=== PATIENT | female | born 1965 | race American Indian/Alaskan Native ===

== ENCOUNTER 2016-11-13 20:08 | Emergency (ER) | payer MEDICAID ==
[2016-11-13 20:08] VITALS: BMI 38.0
[2016-11-13 20:28] VITALS: TEMP 98.1
[2016-11-13] MEDS ORDERED: Sodium Chloride 0.9% 1,000 ML IV STA (21:23)
[2016-11-13 21:33] LABS: PH,URINE 6.5 (4.7-8.0); URINE BILIRUBIN NEGATIVE (NEGATIVE); URINE BLOOD MODERATE (NEGATIVE); URINE GLUCOSE (UA) NEGATIVE (NEGATIVE); URINE KETONE NEGATIVE (NEGATIVE); URINE LEUKOCYTE ESTERASE NEGATIVE Leu/uL (NEGATIVE); URINE PROTEIN NEGATIVE mg/dL (<30 mg/dL)
[2016-11-13 21:35] LABS: URINE APPEARANCE CLEAR (CLEAR); URINE COLOR YELLOW (YELLOW)
[2016-11-13 21:47] LABS: URINE BACTERIA MOD (NEG); URINE WBC 0 - 2 /hpf (0-6)
--- NOTE | 2016-11-13 21:51 | ED PDOC ---
Arrival/HPI - General Historian: Patient - General Chief Complaint: Female Genitourinary Time Seen by Provider: 11/13/16 20:32 - History of Present Illness Narrative History of Present Illness (Text): 11/13/16 21:43 51yo female present with complaint of vaginal bleeding and painful lump behind her right ear. States her monthly period ended Wednesday and then she started noticing blood when she wipes herself after urination from yesterday. She also notes that she had sore throat and hoarseness that resolved and the nshe started having the lump behind her right ear. Did not take any medication. Denies current sore throat, fever, chills, dizziness, urinary symptoms, back pain, abdominal pain, any other complaint. (Maurice Salinas) Past Medical History - Provider Review Nursing Documentation Reviewed: Yes - Infectious Disease Hx of Infectious Diseases: None - Tetanus Immunization Tetanus Immunization: Unknown - Past Medical History Past Medical History: Unable to Obtain - Cardiac Hx Cardiac Disorders: No - Pulmonary Hx Respiratory Disorders: No - Neurological Hx Neurological Disorder: No - HEENT Hx HEENT Disorder: No - Renal Hx Renal Disorder: No - Endocrine/Metabolic Hx Endocrine Disorders: No - Hematological/Oncological Hx Blood Disorders: No - Integumentary Hx Dermatological Disorder: No - Musculoskeletal/Rheumatological Hx Musculoskeletal Disorders: Yes Hx Back Pain: Yes - Gastrointestinal Hx Gastrointestinal Disorders: Yes Hx Gastroesophageal Reflux: Yes - Genitourinary/Gynecological Hx Genitourinary Disorders: No - Psychiatric Hx Depression: Yes Hx Emotional Abuse: No Hx Physical Abuse: No Hx Substance Use: No - Past Surgical History Past Surgical History: No Previous - Anesthesia Hx Anesthesia: No Hx Anesthesia Reactions: No Hx Malignant Hyperthermia: No - Suicidal Assessment Feels Threatened In Home Enviroment: No Family/Social History - Physician Review Nursing Documentation Reviewed: Yes Family/Social History: Unknown Family HX Smoking Status: Unknown If Ever Smoked Hx Alcohol Use: No Hx Substance Use: No Hx Substance Use Treatment: No Allergies/Home Meds Allergies/Adverse Reactions: Allergies No Known Allergies Allergy (Verified 11/09/15 20:38) Home Medications: Home Meds Medication Instructions Recorded Confirmed Omeprazole [Prilosec] 40 mg PO DAILY 07/08/15 11/09/15 Paroxetine HCl [Paxil] 40 mg PO DAILY 11/09/15 11/13/16 Review of Systems - Physician Review All systems were reviewed & negative as marked: Yes - Review of Systems Constitutional: Normal Eyes: Normal ENT: Normal Respiratory: Normal Cardiovascular: Normal Gastrointestinal: Normal. absent: Abdominal Pain Genitourinary Female: Vaginal Bleeding. absent: Frequency, Hematuria Musculoskeletal: Normal Skin: Normal Neurological: Normal Endocrine: Normal Hemo/Lymphatic: Normal Psychiatric: Normal Physical Exam Vital Signs Reviewed: Yes Temperature: Afebrile Blood Pressure: Normal Pulse: Regular Respiratory Rate: Normal Appearance: Positive for: Well-Appearing, Non-Toxic, Comfortable Pain Distress: None Mental Status: Positive for: Alert and Oriented X 3 - Systems Exam Head: Present: Atraumatic, Normocephalic Pupils: Present: PERRL Extroacular Muscles: Present: EOMI Conjunctiva: Present: Normal Mouth: Present: Moist Mucous Membranes Neck: Present: Normal Range of Motion Respiratory/Chest: Present: Clear to Auscultation, Good Air Exchange. No: Respiratory Distress, Accessory Muscle Use Cardiovascular: Present: Regular Rate and Rhythm, Normal S1, S2. No: Murmurs Abdomen: Present: Normal Bowel Sounds. No: Tenderness, Distention, Peritoneal Signs Genitourinary/Pelvic Exam: Present: Vaginal Bleeding (Very small scanty blood noted on cervix wall) Back: Present: Normal Inspection Upper Extremity: Present: Normal Inspection. No: Cyanosis, Edema Lower Extremity: Present: Normal Inspection. No: Edema Neurological: Present: GCS=15, CN II-XII Intact, Speech Normal Skin: Present: Warm, Dry, Normal Color. No: Rashes Lymphatic: Present: Other (Right posterior node palpable and tender) Psychiatric: Present: Alert, Oriented x 3, Normal Insight, Normal Concentration Vital Signs Temp Pulse Resp BP Pulse Ox 11/14/16 00:30 72 16 121/78 100 11/14/16 00:09 75 18 121/78 99 11/13/16 20:22 98.1 F 82 18 108/78 98 Medical Decision Making ED Course and Treatment: I was available for consultation during PA evaluation. The chart was reviewed by me, and I agree with disposition. The documented history was done by the physician history faculty member. The documented physical exam was done by the physician history faculty member. The documented procedures were done by the physician history faculty member. (Stevie Mercedes) 11/14/16 01:58 PT was hemodynamically stable in ED. Afebrile. Her lab was reviewed with h/h of 10.4. She had very mild scanty blood on her cervix on examination. She was given Amoxicillin for lymphadenopathy. Result was DW the pt. she have aGYN and was referred to her FAN INSTALLER/PMD. Advised TRT ED for any new or worsening symptoms. (Maurice Salinas) - Lab Interpretations Lab Results: 11/13/16 23:54 11/13/16 23:54 Lab Results 11/13/16 23:54: Sodium 137, Potassium 4.5, Chloride 102, Carbon Dioxide 27, Anion Gap 13, BUN 15, Creatinine 0.7, Est GFR ( Amer) > 60, Est GFR (Non- Af Amer) > 60, Random Glucose 111 H, Calcium 8.5, Total Bilirubin 0.2, AST 33, ALT 30, Alkaline Phosphatase 85, Total Protein 8.1, Albumin 3.5, Globulin 4.6, Albumin/Globulin Ratio 0.8 L 11/13/16 23:54: PT 10.1, INR 0.94, APTT 26.4 11/13/16 23:54: WBC 8.5 D, RBC 4.32, Hgb 10.4 L, Hct 32.5 L, MCV 75.2 L, MCH 24.1 L, MCHC 32.0, RDW 16.1 H, Plt Count 269, MPV 11.0, Gran % 59.4, Lymph % ( Auto) 31.2, [place] % (Auto) 7.5 H, Eos % (Auto) 1.8, Baso % (Auto) 0.1, Gran # 5.05, Lymph # 2.7, [place] # 0.6, Eos # 0.2, Baso # 0.01 11/13/16 21:00: Urine Color Yellow, Urine Appearance Clear, Urine pH 6.5, Ur Specific [place] 1.025, Urine Protein Negative, Urine Glucose (UA) Negative, Urine Ketones Negative, Urine Blood Moderate H, Urine Nitrate Negative, Urine Bilirubin Negative, Urine Urobilinogen 1.0 H, Ur Leukocyte Esterase Negative, Urine RBC 2 - 5, Urine WBC 0 - 2, Ur Epithelial Cells 6 - 8, Urine Bacteria Mod - Medication Orders Current Medication Orders: Discontinued Medications Amoxicillin (Amoxil 500 Mg Cap) 500 mg PO STAT STA PRN Reason: Protocol Stop: 11/13/16 22:40 Last Admin: 11/14/16 00:00 Dose: Sodium Chloride (Sodium Chloride 0.9%) 1,000 mls @ 999 mls/hr IV .Q1H1M STA Stop: 11/13/16 22:23 Last Admin: 11/13/16 23:56 Dose: 999 mls/hr Ibuprofen (Motrin Tab) 600 mg PO STAT STA Stop: 11/13/16 22:41 Last Admin: 11/13/16 22:50 Dose: 600 mg Ketorolac Tromethamine (Toradol) 30 mg IVP STAT STA Stop: 11/13/16 21:24 Last Admin: 11/14/16 00:00 Dose: Disposition/Present on Arrival - Present on Arrival Any Indicators Present on Arrival: No History of DVT/PE: No History of Uncontrolled Diabetes: No Urinary Catheter: No History of Decub. Ulcer: No History Surgical Site Infection Following: None - Disposition Have Diagnosis and Disposition been Completed?: Yes Disposition Time: 00:30 Patient Plan: Discharge - Disposition Diagnosis: Lymphadenopathy, Dysfunctional uterine bleeding Disposition: HOME/ ROUTINE Condition: STABLE Discharge Instructions (ExitCare): Dysfunctional Uterine Bleeding (ED), Lymphadenopathy (ED) Additional Instructions: Follow up with your FAN INSTALLER/PMD Return to ED for any new or worsening symptoms Prescriptions: Amoxicillin 500 mg PO BID #14 tab Ibuprofen [Motrin Tab] 600 mg PO Q6 #20 tab Referrals: Nae Long MD [Primary Care Provider] - Follow up with primary
[2016-11-14] LABS: ADD MANUAL DIFF? NO
[2016-11-14 00:09] VITALS: BP 121/78
[2016-11-14 00:14] LABS: ALB/GLOB RATIO 0.8 (1.1-1.8); ALKALINE PHOSPHATASE 85 U/L (38-133); ALT/SGPT 30 U/L (7-56); AST/SGOT 33 U/L (15-39); BILIRUBIN,TOTAL 0.2 mg/dL (0.2-1.3); BLOOD UREA NITROGEN 15 mg/dL (7-21); CALCIUM 8.5 mg/dL (8.4-10.5); CARBON DIOXIDE 27 mmol/L (21-33); CHLORIDE 102 mmol/L (98-107); GFR AFRICAN-AMERICAN > 60; GLUCOSE,RANDOM 111 mg/dL (70-110); POTASSIUM 4.5 mmol/L (3.6-5.0); SODIUM 137 mmol/L (132-148); TOTAL PROTEIN 8.1 g/dL (5.8-8.3)
[2016-11-14 00:21] LABS: BASO # 0.01 K/mm3 (0.0-2.0); BASO % 0.1 % (0.0-3.0); EOS # 0.2 (0.0-0.7); EOS % 1.8 % (1.5-5.0); GRAN # 5.05 (1.4-6.5); GRAN % 59.4 % (50.0-68.0); HEMATOCRIT 32.5 % (36.0-48.0); LYMPH # 2.7 (1.2-3.4); LYMPH % 31.2 % (22.0-35.0); MEAN CELL VOLUME 75.2 fL (80.0-105.0); MEAN CORPUSCULAR HEMOGLOBIN 24.1 pg (25.0-35.0); MONO # 0.6 (0.1-0.6); MONO % 7.5 % (1.0-6.0); PLATELET COUNT 269 10^3/uL (120.0-450.0); RED CELL DISTRIBUTION WIDTH 16.1 % (11.5-14.5); WHITE BLOOD COUNT 8.5 10^3/ul (4.5-11.0)
[2016-11-14 00:25] LABS: INR 0.94 (0.93-1.08); PARTIAL THROMBOPLASTIN TIME 26.4 Seconds (23.7-30.8)
[2016-11-14 00:30] VITALS: PULSE 72; RESP 16; O2SAT 100
== END 2016-11-14 00:30 | disposition home or self-care (01) ==
LOC: ED 20:08
DX: N93.8 Other specified abnormal uterine and vaginal bleeding (principal); R59.1 Generalized enlarged lymph nodes
CPT/HCPCS: 80053; 81001; 85025; 85610; 85730; 96360; 99285; J7040

== ENCOUNTER 2016-11-21 13:01 | Emergency (ER) | payer MEDICAID ==
--- NOTE | 2016-11-21 22:28 | RAD ---
PROCEDURE: Chest two views HISTORY: Cough COMPARISON: None TECHNIQUE: Standard protocol for this study/examination. FINDINGS: No active pulmonary disease. No pulmonary nodules, masses or infiltrates. No evidence of acute, significant cardiovascular disease. No significant pleural, osseous or subdiaphragmatic abnormalities. IMPRESSION: No active disease
== END 2016-11-23 09:19 | disposition home or self-care (01) ==
LOC: MERGE 13:01 → ED 13:01
DX: J40 Bronchitis, not specified as acute or chronic (principal)

== ENCOUNTER 2017-05-13 12:34 | Emergency (ER) | payer MEDICAID ==
[2017-05-13 12:34] VITALS: BMI 38.0
--- NOTE | 2017-05-13 13:01 | ED PDOC ---
Arrival/HPI - General Chief Complaint: Female Genitourinary Time Seen by Provider: 05/13/17 12:58 Historian: Patient - History of Present Illness Narrative History of Present Illness (Text): 05/13/17 13:00 51 yo female w/recent hx of uterus fibroid come in for evaluation of vaginal bleeding started " second week of April". Pt reports, " change numerous pads during the day". Pt admits, had Depo shot in February, missed menstrual in March and now developed heavy vaginal bleeding. Otherwise, pt denies fever, chills, headache, dizziness, weakness, CP, SOB, dyspnea, diaphoresis, palpitation, abd. pain, V/D, back pain, UTI sx. Ambulate to Ed for evaluation, not in any apparent distress. Past Medical History - Provider Review Nursing Documentation Reviewed: Yes - Travel History Have you recently traveled outside [place] w/in the past 3 mons?: No - Infectious Disease Hx of Infectious Diseases: None - Tetanus Immunization Tetanus Immunization: Unknown - Past Medical History Past Medical History: Unable to Obtain - Cardiac Hx Cardiac Disorders: No - Pulmonary Hx Respiratory Disorders: No - Neurological Hx Neurological Disorder: No - HEENT Hx HEENT Disorder: No - Renal Hx Renal Disorder: No - Endocrine/Metabolic Hx Endocrine Disorders: No - Hematological/Oncological Hx Blood Disorders: No - Integumentary Hx Dermatological Disorder: No - Musculoskeletal/Rheumatological Hx Musculoskeletal Disorders: Yes Hx Back Pain: Yes - Gastrointestinal Hx Gastrointestinal Disorders: Yes Hx Gastroesophageal Reflux: Yes - Genitourinary/Gynecological Hx Genitourinary Disorders: No - Psychiatric Hx Depression: Yes Hx Emotional Abuse: No Hx Physical Abuse: No Hx Substance Use: No - Past Surgical History Past Surgical History: No Previous - Anesthesia Hx Anesthesia: No Hx Anesthesia Reactions: No Hx Malignant Hyperthermia: No - Suicidal Assessment Feels Threatened In Home Enviroment: No Family/Social History - Physician Review Nursing Documentation Reviewed: Yes Family/Social History: No Known Family HX Smoking Status: Unknown If Ever Smoked Hx Alcohol Use: No Hx Substance Use: No Hx Substance Use Treatment: No Allergies/Home Meds Allergies/Adverse Reactions: Allergies No Known Allergies Allergy (Verified 05/13/17 12:56) Review of Systems - Review of Systems Constitutional: Normal Eyes: Normal ENT: Normal Respiratory: Normal Cardiovascular: Normal Gastrointestinal: Normal Genitourinary Female: Vaginal Bleeding Musculoskeletal: Normal Skin: Normal Neurological: Normal Endocrine: Normal Hemo/Lymphatic: Normal Psychiatric: Normal Physical Exam Vital Signs Reviewed: Yes Vital Signs Temp Pulse Resp BP Pulse Ox 05/13/17 13:47 71 18 116/45 L 100 05/13/17 13:00 98.8 F 94 H 18 108/87 100 Temperature: Afebrile Blood Pressure: Normal Pulse: Regular Respiratory Rate: Normal Appearance: Positive for: Well-Appearing, Non-Toxic, Comfortable Pain Distress: None Mental Status: Positive for: Alert and Oriented X 3 - Systems Exam Conjunctiva: Present: Normal Mouth: Present: Moist Mucous Membranes, Normal Lips. No: Drooling Neck: Present: Trachea Midline. No: JVD Respiratory/Chest: Present: Clear to Auscultation, Good Air Exchange. No: Respiratory Distress, Accessory Muscle Use Cardiovascular: Present: Regular Rate and Rhythm, Normal S1, S2. No: Murmurs Abdomen: Present: Normal Bowel Sounds. No: Tenderness, Distention, Peritoneal Signs, Rebound, Guarding Back: No: CVA Tenderness Upper Extremity: Present: Normal ROM. No: Deformity Lower Extremity: Present: Normal ROM. No: Edema, Swelling, Deformity Neurological: Present: GCS=15, Speech Normal Skin: Present: Warm, Dry, Normal Color. No: Rashes Psychiatric: Present: Alert, Oriented x 3, Normal Insight, Normal Concentration Medical Decision Making ED Course and Treatment: 05/13/17 12:59 PT WAS OBS IN Emergency department FOR 1.5 HOURS AD REMAINED STABLE. Pt on re-eval, pt is Afebrile, hemodynamicaly stable. Non-toxic. Neck; Supple, (-) JVD Lungs: CTA B/L, BS equal B/L. CVS: (+)S1S2, reg Abd: benign, (-) guarding, (-)rebound, (-) localized tenderness. back: (-) CVA tenderness Blood work review , no evidence of anemia or dehydration. Pt has clinical findings c/w DUB, menorrhagia. Case discussed with MAINTENANCE AND ENGINEERING MANAGER-on-call , results review, recommend Lysteda 1300 tid#5ds with outpt f/u results review and dsicussed with pt. Pt advised on course of ds. ref. to f/u with MAINTENANCE AND ENGINEERING MANAGER in 2-3 days for re-eval. return if any worsening or new changes. - Lab Interpretations Lab Results: 12/21/17 13:43 05/13/17 13:43 Lab Results 05/13/17 13:43: Sodium 140, Potassium 4.3, Chloride 107, Carbon Dioxide 25, Anion Gap 13, BUN 13, Creatinine 0.8, Est GFR ( Amer) > 60, Est GFR (Non- Af Amer) > 60, Random Glucose 107, Calcium 9.2, Total Bilirubin 0.4, AST 30, ALT 30, Alkaline Phosphatase 69, Total Protein 8.7 H, Albumin 4.0, Globulin 4.7 , Albumin/Globulin Ratio 0.9 L 05/13/17 13:43: WBC 6.4 D, RBC 4.69, Hgb 11.3 L, Hct 35.0 L, MCV 74.6 L, MCH 24.1 L, MCHC 32.3, RDW 16.9 H, Plt Count 244, MPV 10.6, Gran % 60.3, Lymph % ( Auto) 31.7, [place] % (Auto) 6.5 H, Eos % (Auto) 1.2 L, Baso % (Auto) 0.3, Gran # 3.87, Lymph # 2.0, [place] # 0.4, Eos # 0.1, Baso # 0.02 05/13/17 13:20: Urine Color Red, Urine Appearance Turbid, Urine pH 6.0, Ur Specific [place] >= 1.030, Urine Protein 100 H, Urine Glucose (UA) Negative, Urine Ketones Trace H, Urine Blood Large H, Urine Nitrate Negative, Urine Bilirubin Small H, Urine Urobilinogen 0.2, Ur Leukocyte Esterase Negative, Urine RBC Tntc, Urine WBC Negative, Ur Epithelial Cells 3 - 4 - Medication Orders Current Medication Orders: Discontinued Medications Sodium Chloride (Sodium Chloride 0.9%) 1,000 mls @ 999 mls/hr IV .Q1H1M STA Stop: 05/13/17 14:23 Last Admin: 05/13/17 13:45 Dose: 999 mls/hr eMAR Start Stop Document 05/13/17 13:45 REBA (Rec: 05/13/17 13:51 RG [id number]) Intravenous Solution Start Date 05/13/17 Start Time 13:45 Disposition/Present on Arrival - Present on Arrival Any Indicators Present on Arrival: No History of DVT/PE: No History of Uncontrolled Diabetes: No Urinary Catheter: No History of Decub. Ulcer: No History Surgical Site Infection Following: None - Disposition Have Diagnosis and Disposition been Completed?: Yes Diagnosis: Leiomyoma of body of uterus, Menorrhagia Disposition: HOME/ ROUTINE Disposition Time: 14:15 Patient Plan: Discharge Condition: STABLE Discharge Instructions (ExitCare): Menorrhagia (ED) Additional Instructions: ENCOURAGE FLUIDS FOLLOW UP WITH MAINTENANCE AND ENGINEERING MANAGER IN 2-3 DAYS FOR RE-EVALUATION AND FURTHER TREATMENT NEED RETURN TO ED IF ANY WORSENING OR NEW CHANGES. Prescriptions: Tranexamic Acid [Lysteda] 1,300 mg PO TID #15 tablet Referrals: Marry Alvarado CNM [Certified Nurse [place]] - [facility] - Follow up with primary Forms: [facility] ([place]ian), WORK NOTE
[2017-05-13 13:11] VITALS: RESP 18; TEMP 98.8; O2SAT 100
[2017-05-13] MEDS ORDERED: Sodium Chloride 0.9% 1,000 ML IV STA (13:23)
[2017-05-13 13:41] LABS: URINE BILIRUBIN SMALL (NEGATIVE); URINE BLOOD LARGE (NEGATIVE); URINE GLUCOSE (UA) NEGATIVE (NEGATIVE); URINE KETONE TRACE mg/dL (NEGATIVE); URINE LEUKOCYTE ESTERASE NEGATIVE Leu/uL (NEGATIVE); URINE PROTEIN 100 mg/dL (<30 mg/dL); URINE UROBILINOGEN 0.2 E.U./dL (<1 E.U./dL)
[2017-05-13 13:44] LABS: URINE APPEARANCE TURBID (CLEAR); URINE COLOR RED (YELLOW)
[2017-05-13 13:51] LABS: BASO # 0.02 K/mm3 (0.0-2.0); BASO % 0.3 % (0.0-3.0); EOS # 0.1 (0.0-0.7); EOS % 1.2 % (1.5-5.0); GRAN # 3.87 (1.4-6.5); GRAN % 60.3 % (50.0-68.0); LYMPH % 31.7 % (22.0-35.0); MEAN CELL VOLUME 74.6 fl (80.0-105.0); MEAN CORPUSCULAR HEMOGLOBIN 24.1 pg (25.0-35.0); MEAN CORPUSCULAR HGB CONC 32.3 g/dl (31.0-37.0); MEAN PLATELET VOLUME 10.6 fl (7.0-11.0); MONO # 0.4 (0.1-0.6); MONO % 6.5 % (1.0-6.0); RED CELL DISTRIBUTION WIDTH 16.9 % (11.5-14.5); WHITE BLOOD COUNT 6.4 10^3/ul (4.5-11.0)
[2017-05-13 13:51] LABS: URINE RBC TNTC /hpf (0-2); URINE WBC NEGATIVE /hpf (0-6)
[2017-05-13 14:00] LABS: BLOOD UREA NITROGEN 13 mg/dL (7-21); CARBON DIOXIDE 25 mmol/L (21-33); CHLORIDE 107 mmol/L (98-107); GFR AFRICAN-AMERICAN > 60; GLUCOSE,RANDOM 107 mg/dL (70-110); POTASSIUM 4.3 mmol/L (3.6-5.0); SODIUM 140 mmol/L (132-148)
[2017-05-13 14:01] LABS: ALKALINE PHOSPHATASE 69 U/L (38-126); ALT/SGPT 30 U/L (7-56); AST/SGOT 30 U/L (14-36); BILIRUBIN,TOTAL 0.4 mg/dL (0.2-1.3); CALCIUM 9.2 mg/dL (8.4-10.5); TOTAL PROTEIN 8.7 g/dL (5.8-8.3)
[2017-05-13 14:10] LABS: ALB/GLOB RATIO 0.9 (1.1-1.8)
[2017-05-13 14:12] VITALS: BP 116/45; PULSE 71
== END 2017-05-13 15:05 | disposition home or self-care (01) ==
LOC: ED 12:34
DX: D25.9 Leiomyoma of uterus, unspecified (principal); N92.0 Excessive and frequent menstruation with regular cycle
CPT/HCPCS: 80053; 81001; 85025; 99285; J7040

== ENCOUNTER 2017-07-21 15:12 | Emergency (ER) | payer MEDICAID ==
[2017-07-21 15:12] VITALS: BMI 38.0
[2017-07-21 15:17] VITALS: BP 123/88; PULSE 98; TEMP 98.6; O2SAT 100
[2017-07-21 15:20] VITALS: RESP 18
[2017-07-21] MEDS ORDERED: Promethazine DM 6.25 mg-15 mg/5 ml Syrup PO STA (15:27)
--- NOTE | 2017-07-21 15:30 | ED PDOC ---
Arrival/HPI - General Chief Complaint: Cough, Cold, Congestion Time Seen by Provider: 07/21/17 15:26 Historian: Patient - History of Present Illness Narrative History of Present Illness (Text): 07/21/17 15:27 51yo female present with weeks history of nonproductive cough. States she was seen by a Doctor for the cough and was given Albuterol inhaler for bronchitis. states the cough improved, but she is till coughing. Notes that cough is causing her to have headache. She came to ED requesting antitussive. She denies fever, chills, sore throat(Although triage note states sore throat), chest pain , SOB, diaphoresis, wheezing, any other complaint. Past Medical History - Provider Review Nursing Documentation Reviewed: Yes - Infectious Disease Hx of Infectious Diseases: None - Tetanus Immunization Tetanus Immunization: Unknown - Past Medical History Past Medical History: Unable to Obtain - Cardiac Hx Cardiac Disorders: No - Pulmonary Hx Respiratory Disorders: No - Neurological Hx Neurological Disorder: No - HEENT Hx HEENT Disorder: No - Renal Hx Renal Disorder: No - Endocrine/Metabolic Hx Endocrine Disorders: No - Hematological/Oncological Hx Blood Disorders: No - Integumentary Hx Dermatological Disorder: No - Musculoskeletal/Rheumatological Hx Musculoskeletal Disorders: Yes Hx Back Pain: Yes - Gastrointestinal Hx Gastrointestinal Disorders: Yes Hx Gastroesophageal Reflux: Yes - Genitourinary/Gynecological Hx Genitourinary Disorders: No - Psychiatric Hx Depression: Yes Hx Emotional Abuse: No Hx Physical Abuse: No Hx Substance Use: No - Past Surgical History Past Surgical History: No Previous - Anesthesia Hx Anesthesia: No Hx Anesthesia Reactions: No Hx Malignant Hyperthermia: No - Suicidal Assessment Feels Threatened In Home Enviroment: No Family/Social History - Physician Review Nursing Documentation Reviewed: Yes Family/Social History: Unknown Family HX Smoking Status: Unknown If Ever Smoked Hx Alcohol Use: No Hx Substance Use: No Hx Substance Use Treatment: No Allergies/Home Meds Allergies/Adverse Reactions: Allergies No Known Allergies Allergy (Verified 07/21/17 15:15) Home Medications: Home Meds Medication Instructions Recorded Confirmed Loratadine [Claritin] 10 mg PO DAILY 07/21/17 07/21/17 Review of Systems - Physician Review All systems were reviewed & negative as marked: Yes - Review of Systems Constitutional: Normal Eyes: Normal ENT: Normal Respiratory: Cough. absent: SOB, Sputum, Wheezing Cardiovascular: Normal Gastrointestinal: Normal Genitourinary Female: Normal Musculoskeletal: Normal Skin: Normal Neurological: Normal Endocrine: Normal Hemo/Lymphatic: Normal Psychiatric: Normal Physical Exam Vital Signs Reviewed: Yes Vital Signs Temp Pulse Resp BP Pulse Ox 07/21/17 15:20 98.6 F 98 H 18 123/88 100 07/21/17 15:15 98.6 F 98 H 16 123/88 100 Temperature: Afebrile Blood Pressure: Normal Pulse: Regular Respiratory Rate: Normal Appearance: Positive for: Well-Appearing, Non-Toxic, Comfortable Pain Distress: None Mental Status: Positive for: Alert and Oriented X 3 - Systems Exam Head: Present: Atraumatic, Normocephalic Pupils: Present: PERRL Extroacular Muscles: Present: EOMI Conjunctiva: Present: Normal Mouth: Present: Moist Mucous Membranes Neck: Present: Normal Range of Motion Respiratory/Chest: Present: Clear to Auscultation, Good Air Exchange. No: Respiratory Distress, Accessory Muscle Use, Wheezes, Decreased Breath Sounds, Rales, Retracting, Rhonchi, Tachypneic Cardiovascular: Present: Regular Rate and Rhythm, Normal S1, S2. No: Murmurs Abdomen: Present: Normal Bowel Sounds. No: Tenderness, Distention, Peritoneal Signs Back: Present: Normal Inspection Upper Extremity: Present: Normal Inspection. No: Cyanosis, Edema Lower Extremity: Present: Normal Inspection. No: Edema Neurological: Present: GCS=15, CN II-XII Intact, Speech Normal Skin: Present: Warm, Dry, Normal Color. No: Rashes Psychiatric: Present: Alert, Oriented x 3, Normal Insight, Normal Concentration Disposition/Present on Arrival - Present on Arrival Any Indicators Present on Arrival: No History of DVT/PE: No History of Uncontrolled Diabetes: No Urinary Catheter: No History of Decub. Ulcer: No History Surgical Site Infection Following: None - Disposition Have Diagnosis and Disposition been Completed?: Yes Diagnosis: Cough, Costochondritis Disposition: HOME/ ROUTINE Disposition Time: 15:30 Patient Plan: Discharge Condition: FAIR Discharge Instructions (ExitCare): Cough in Adults Additional Instructions: Take medication as directed Follow up with your doctor Return to ED for any new symptoms Prescriptions: Promethazine [Phenergan Syrup] 6.25 mg PO Q6 #120 ml Referrals: Nae Long MD [Primary Care Provider] - Follow up with primary
== END 2017-07-21 16:20 | disposition home or self-care (01) ==
LOC: ED 15:12
DX: R05 Cough (principal); M94.0 Chondrocostal junction syndrome [Tietze]

== ENCOUNTER 2017-09-21 13:33 | Emergency (ER) | payer MEDICAID ==
[2017-09-21 13:41] VITALS: BMI 39.4
[2017-09-21 13:46] VITALS: BP 123/93; PULSE 78; RESP 18; TEMP 98.7; O2SAT 98
[2017-09-21] MEDS ORDERED: Sodium Chloride 0.9% 1,000 ML IV STA (14:38)
[2017-09-21 15:07] LABS: BASO # 0.01 K/mm3 (0.0-2.0); BASO % 0.2 % (0.0-3.0); EOS # 0.1 (0.0-0.7); EOS % 1.3 % (1.5-5.0); GRAN # 3.18 (1.4-6.5); GRAN % 53.1 % (50.0-68.0); HEMOGLOBIN 10.5 g/dL (12.0-16.0); LYMPH # 2.4 (1.2-3.4); LYMPH % 39.2 % (22.0-35.0); MEAN CELL VOLUME 72.4 fl (80.0-105.0); MEAN CORPUSCULAR HGB CONC 31.8 g/dl (31.0-37.0); MEAN PLATELET VOLUME 9.8 fl (7.0-11.0); MONO # 0.4 (0.1-0.6); MONO % 6.2 % (1.0-6.0); RBC 4.56 10^6/uL (3.5-6.1)
[2017-09-21 15:18] LABS: ALB/GLOB RATIO 0.9 (1.1-1.8); ALT/SGPT 30 U/L (7-56); AST/SGOT 34 U/L (14-36); BLOOD UREA NITROGEN 12 mg/dL (7-21); CALCIUM 8.7 mg/dL (8.4-10.5); GFR AFRICAN-AMERICAN > 60; GFR NON-AFRICAN AMERICAN > 60
--- NOTE | 2017-09-21 15:21 | ED PDOC ---
Arrival/HPI - General Chief Complaint: Female Genitourinary Time Seen by Provider: 09/21/17 14:37 Historian: Patient - History of Present Illness Narrative History of Present Illness (Text): 09/21/17 15:19 52yo female with PMHx of fibroid present with complaint of vaginal bleeding x one month. Notes that she usually use 4pads, soak through daily. states she have appointment on the with her DIRECT[employer], but came to ED for work note. States lifting at work makes the bleeding worse. She denies abdominal pain, dizziness, chest pain, SOB, urinary symptoms, back pain, any other complaint. Past Medical History - Provider Review Nursing Documentation Reviewed: Yes - Infectious Disease Hx of Infectious Diseases: None - Tetanus Immunization Tetanus Immunization: Unknown - Past Medical History Past Medical History: Unable to Obtain - Cardiac Hx Cardiac Disorders: No - Pulmonary Hx Respiratory Disorders: No - Neurological Hx Neurological Disorder: No - HEENT Hx HEENT Disorder: No - Renal Hx Renal Disorder: No - Endocrine/Metabolic Hx Endocrine Disorders: No - Hematological/Oncological Hx Blood Disorders: No - Integumentary Hx Dermatological Disorder: No - Musculoskeletal/Rheumatological Hx Musculoskeletal Disorders: Yes Hx Back Pain: Yes - Gastrointestinal Hx Gastrointestinal Disorders: Yes Hx Gastroesophageal Reflux: Yes - Genitourinary/Gynecological Hx Genitourinary Disorders: No - Psychiatric Hx Depression: Yes Hx Emotional Abuse: No Hx Physical Abuse: No Hx Substance Use: No - Past Surgical History Past Surgical History: No Previous - Anesthesia Hx Anesthesia: No Hx Anesthesia Reactions: No Hx Malignant Hyperthermia: No - Suicidal Assessment Feels Threatened In Home Enviroment: No Family/Social History - Physician Review Nursing Documentation Reviewed: Yes Family/Social History: Unknown Family HX Smoking Status: Never Smoked Hx Alcohol Use: No Hx Substance Use: No Hx Substance Use Treatment: No Allergies/Home Meds Allergies/Adverse Reactions: Allergies No Known Allergies Allergy (Verified 07/21/17 15:15) Home Medications: Home Meds Medication Instructions Recorded Confirmed Loratadine [Claritin] 10 mg PO DAILY 07/21/17 07/21/17 Review of Systems - Physician Review All systems were reviewed & negative as marked: Yes - Review of Systems Constitutional: Normal Eyes: Normal ENT: Normal Respiratory: Normal Cardiovascular: Normal Gastrointestinal: Normal Genitourinary Female: Vaginal Bleeding Musculoskeletal: Normal Skin: Normal Neurological: Normal Endocrine: Normal Hemo/Lymphatic: Normal Psychiatric: Normal Physical Exam Vital Signs Reviewed: Yes Vital Signs Temp Pulse Resp BP Pulse Ox 09/21/17 13:33 98.7 F 78 18 123/93 H 98 Temperature: Afebrile Blood Pressure: Normal Pulse: Regular Respiratory Rate: Normal Appearance: Positive for: Well-Appearing, Non-Toxic, Comfortable Pain Distress: None Mental Status: Positive for: Alert and Oriented X 3 - Systems Exam Head: Present: Atraumatic, Normocephalic Pupils: Present: PERRL Extroacular Muscles: Present: EOMI Conjunctiva: Present: Normal Mouth: Present: Moist Mucous Membranes Neck: Present: Normal Range of Motion Respiratory/Chest: Present: Clear to Auscultation, Good Air Exchange. No: Respiratory Distress, Accessory Muscle Use Cardiovascular: Present: Regular Rate and Rhythm, Normal S1, S2. No: Murmurs Abdomen: No: Tenderness, Distention, Peritoneal Signs Genitourinary/Pelvic Exam: Present: Other (Pt declined pelvic exam) Back: Present: Normal Inspection Upper Extremity: Present: Normal Inspection. No: Cyanosis, Edema Lower Extremity: Present: Normal Inspection. No: Edema Neurological: Present: GCS=15, CN II-XII Intact, Speech Normal Skin: Present: Warm, Dry, Normal Color. No: Rashes Psychiatric: Present: Alert, Oriented x 3, Normal Insight, Normal Concentration Medical Decision Making ED Course and Treatment: 09/21/17 15:50 Pt presented to ED for stated history. He was not in any distress. Hemodynamically stable. She declined Pelvic exam in ED. H/H was 10.6. She reported history of Fibroid and have her own [employer]. she was placed on Provera. Result was DW the pt and she was referred to her GTN. Advised TRT Ed for any new or worsening symptoms. - Lab Interpretations Lab Results: 09/21/17 14:45 09/21/17 14:45 Lab Results 09/21/17 15:30: Urine Color Yellow, Urine Appearance Cloudy, Urine pH 6.0, Ur Specific [place] >= 1.030, Urine Protein 30 H, Urine Glucose (UA) Negative, Urine Ketones Negative, Urine Blood Large H, Urine Nitrate Negative, Urine Bilirubin Negative, Urine Urobilinogen 1.0 H, Ur Leukocyte Esterase Negative, Urine RBC Pending, Urine WBC Pending 09/21/17 14:45: Sodium 143, Potassium 4.0, Chloride 108 H, Carbon Dioxide 24, Anion Gap 15, BUN 12, Creatinine 0.8, Est GFR ( Amer) > 60, Est GFR (Non- Af Amer) > 60, Random Glucose 96, Calcium 8.7, Total Bilirubin 0.3, AST 34, ALT 30, Alkaline Phosphatase 63, Total Protein 8.3, Albumin 4.0, Globulin 4.3, Albumin/Globulin Ratio 0.9 L 09/21/17 14:45: PT 11.7, INR 1.03, APTT 27.9 09/21/17 14:45: WBC 6.0, RBC 4.56, Hgb 10.5 L, Hct 33.0 L, MCV 72.4 L, MCH 23.0 L, MCHC 31.8, RDW 18.0 H, Plt Count 266, MPV 9.8, Gran % 53.1, Lymph % (Auto) 39.2 H, [place] % (Auto) 6.2 H, Eos % (Auto) 1.3 L, Baso % (Auto) 0.2, Gran # 3.18 , Lymph # (Auto) 2.4, [place] # (Auto) 0.4, Eos # (Auto) 0.1, Baso # (Auto) 0.01 - Medication Orders Current Medication Orders: Discontinued Medications Sodium Chloride (Sodium Chloride 0.9%) 1,000 mls @ 999 mls/hr IV .Q1H1M STA Stop: 09/21/17 15:38 Last Admin: 09/21/17 14:45 Dose: Not Given Non-Admin Reason: Patient Refused Disposition/Present on Arrival - Present on Arrival Any Indicators Present on Arrival: No History of DVT/PE: No History of Uncontrolled Diabetes: No Urinary Catheter: No History of Decub. Ulcer: No History Surgical Site Infection Following: None - Disposition Have Diagnosis and Disposition been Completed?: Yes Diagnosis: Dysfunctional uterine bleeding Disposition: HOME/ ROUTINE Disposition Time: 15:50 Patient Plan: Discharge Patient Problems: Current Active Problems Problem Status Onset Dysfunctional uterine bleeding Acute Condition: STABLE Discharge Instructions (ExitCare): Heavy Periods Additional Instructions: Follow up with your [employer] Return to ED for any new symptoms Prescriptions: MedroxyPROGESTERone [Provera] 10 mg PO DAILY #6 tab Referrals: Jem Gilliland DO [Staff Provider] - Follow up with primary Forms: [email or web address] (Amharic), WORK NOTE
[2017-09-21 15:28] LABS: INR 1.03 (0.93-1.08); PARTIAL THROMBOPLASTIN TIME 27.9 Seconds (25.1-36.5); PROTHROMBIN TIME 11.7 SECONDS (9.4-12.5)
[2017-09-21 15:41] LABS: URINE APPEARANCE CLOUDY (CLEAR); URINE BILIRUBIN NEGATIVE (NEGATIVE); URINE BLOOD LARGE (NEGATIVE); URINE COLOR YELLOW (YELLOW); URINE GLUCOSE (UA) NEGATIVE (NEGATIVE); URINE LEUKOCYTE ESTERASE NEGATIVE Leu/uL (NEGATIVE); URINE PROTEIN 30 mg/dL (<30 mg/dL)
[2017-09-21 16:02] LABS: URINE RBC TNTC /hpf (0-2)
[2017-09-21 16:03] LABS: URINE AMORPHOUS SEDIMENT MODERATE; URINE BACTERIA TRACE (NEG)
== END 2017-09-21 16:00 | disposition home or self-care (01) ==
LOC: ED 13:33
DX: N93.8 Other specified abnormal uterine and vaginal bleeding (principal)

== ENCOUNTER 2018-08-08 11:01 | Emergency (ER) | payer MEDICAID ==
[2018-08-08 11:01] VITALS: BMI 40.2
[2018-08-08] MEDS ORDERED: Sodium Chloride 0.9% 1,000 ML IV STA (11:27)
--- NOTE | 2018-08-08 11:57 | ED PDOC ---
Arrival/HPI - General Chief Complaint: Back Pain Time Seen by Provider: 08/08/18 11:04 Historian: Patient - History of Present Illness Narrative History of Present Illness (Text): 08/08/18 11:20 53 year old female, with past medical history of uterine fibroid, presents to the ED for evaluation of left sided lower back pain since past month. Patient reports intermittent sharp left sided back pain since onset without any allevia ting or exacerbating factors. Patient denies any denies fall, trauma or injury to the back. Patient denies any other associated somatic complaints. Patient denies any fever, chills, nausea, vomiting, diarrhea, abdominal pain, urinary or fecal incontinence, dysuria, hematuria, changes in ambulation, paresthesias, chest pain, shortness of breath, neck pain, headache, dizziness, or any other complaints. Patient denies any history of nephrolithiasis or back surgery. 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 Denies dysuria 08/08/18 14:07 Time/Duration: > month Symptom Onset: Gradual Symptom Course: Unchanged Quality: Other (Sharp) Activities at Onset: Light Context: Home Past Medical History - Provider Review Nursing Documentation Reviewed: Yes - Infectious Disease Hx of Infectious Diseases: None - Tetanus Immunization Tetanus Immunization: Unknown - Past Medical History Past Medical History: Unable to Obtain - Cardiac Hx Cardiac Disorders: No - Pulmonary Hx Respiratory Disorders: Yes Hx Bronchitis: Yes - Neurological Hx Neurological Disorder: No - HEENT Hx HEENT Disorder: No - Renal Hx Renal Disorder: No - Endocrine/Metabolic Hx Endocrine Disorders: No - Hematological/Oncological Hx Blood Disorders: No - Integumentary Hx Dermatological Disorder: No - Musculoskeletal/Rheumatological Hx Musculoskeletal Disorders: Yes Hx Back Pain: Yes - Gastrointestinal Hx Gastrointestinal Disorders: Yes Hx Gastroesophageal Reflux: Yes Other/Comment: BACTERIA IN STOMACH - Genitourinary/Gynecological Hx Genitourinary Disorders: No Other/Comment: HX OF HERPES ZOSTER - Psychiatric Hx Psychophysiologic Disorder: Yes Hx Depression: Yes Hx Emotional Abuse: No Hx Physical Abuse: No Hx Substance Use: No - Past Surgical History Past Surgical History: No Previous - Anesthesia Hx Anesthesia: Yes Hx Anesthesia Reactions: No Hx Malignant Hyperthermia: No - Suicidal Assessment Feels Threatened In Home Enviroment: No Family/Social History - Physician Review Nursing Documentation Reviewed: Yes Family/Social History: Unknown Family HX Smoking Status: Never Smoked Hx Alcohol Use: No Hx Substance Use: No Hx Substance Use Treatment: No Allergies/Home Meds Allergies/Adverse Reactions: Allergies No Known Allergies Allergy (Verified 07/21/17 15:15) Home Medications: Home Meds Medication Instructions Recorded Confirmed Ferrous Sulfate [Feosol] 325 mg PO DAILY 02/04/18 02/04/18 Omeprazole 20 mg PO DAILY 02/04/18 02/04/18 Venlafaxine [Effexor-XR] 37.5 mg PO DAILY 02/04/18 02/04/18 Review of Systems - Review of Systems Constitutional: absent: Fevers Eyes: absent: Vision Changes Respiratory: absent: SOB, Cough Cardiovascular: absent: Chest Pain, DEVRIES Gastrointestinal: absent: Abdominal Pain, Diarrhea, Nausea, Vomiting Genitourinary Female: absent: Dysuria, Urine Output Changes Musculoskeletal: Back Pain. absent: Neck Pain Skin: absent: Rash Neurological: absent: Headache, Dizziness Endocrine: absent: Diaphoresis Psychiatric: absent: Anxiety Physical Exam Appearance: Positive for: Well-Appearing, Non-Toxic, Comfortable Pain Distress: None Mental Status: Positive for: Alert and Oriented X 3 - Systems Exam Head: Present: Atraumatic, Normocephalic Pupils: Present: PERRL Extroacular Muscles: Present: EOMI Conjunctiva: Present: Normal Neck: Present: Normal Range of Motion Respiratory/Chest: Present: Clear to Auscultation, Good Air Exchange. No: Respiratory Distress, Accessory Muscle Use Cardiovascular: Present: Regular Rate and Rhythm, Normal S1, S2. No: Murmurs Abdomen: No: Tenderness, Distention, Peritoneal Signs Back: Present: Paraspinal Tenderness (left sided paraspinal muscle spasm). No: Midline Tenderness Upper Extremity: Present: Normal Inspection. No: Cyanosis, Edema Lower Extremity: Present: Normal Inspection. No: Edema Neurological: Present: GCS=15, Speech Normal Skin: Present: Warm, Dry, Normal Color. No: Rashes Psychiatric: Present: Alert, Oriented x 3, Normal Insight, Normal Concentration Medical Decision Making ED Course and Treatment: 08/08/18 11:30 Impression: 53 year old female presents to the ED for evaluation of left sided lower back pain. Palpable muscle spasm Plan: -- CT of abdomen/Pelvis -- Labs -- IV Fluids -- Toradol -- Valium -- Urinalysis -- Reassess and disposition Prior Visits: Notes and results from previous visits were reviewed. Progress Notes: 08/08/18 14:09 Neurologically intact and ambulating around ED 08/08/18 14:09 CT Abdomen/Pelvis reviewed by radiologist, shows: FINDINGS: LOWER THORAX: Unremarkable. LIVER: Unremarkable. No gross lesion or ductal dilatation. GALLBLADDER AND BILE DUCTS: Unremarkable. PANCREAS: Unremarkable. No gross lesion or ductal dilatation. SPLEEN: Unremarkable. ADRENALS: Unremarkable. No mass. KIDNEYS AND URETERS: Unremarkable. No hydronephrosis. No solid mass. There are pelvic phleboliths. There are no distal ureteral stones or evidence of hydronephrosis VASCULATURE: Unremarkable. No aortic aneurysm. No aortic atherosclerotic calcification or mural plaque present. BOWEL: Unremarkable. No obstruction. No gross mural thickening. APPENDIX: Unremarkable. Normal appendix. PERITONEUM: Unremarkable. No free fluid. No free air. LYMPH NODES: Unremarkable. No enlarged lymph nodes. BLADDER: Unremarkable. REPRODUCTIVE: Enlarged fibroid uterus measuring 16 cm wide by 10 cm AP by 18 cm length. BONES: No acute fracture. OTHER FINDINGS: None. IMPRESSION: No acute intra-abdominal or intrapelvic abnormality. Large fibroid uterus 08/08/18 14:19 Patient already aware of her fibroids. Made aware of hematuria and need to follow-up with urology. Reports pain improvement. Neurologically intact with no bladder or bowel incontinence. Will dc with flexeril. - RAD Interpretation Radiology Orders: 08/08/18 11:27 ABD & PELVIS W/O PO OR IV CONT [CT] Stat Insole Coverer: Radiologist - Medication Orders Current Medication Orders: Sodium Chloride (Sodium Chloride 0.9%) 1,000 mls @ 999 mls/hr IV .Q1H1M STA Stop: 08/08/18 12:27 Discontinued Medications Diazepam (Valium) 5 mg PO STAT STA; Protocol Stop: 08/08/18 11:28 Ketorolac Tromethamine (Toradol) 30 mg IVP STAT STA Stop: 08/08/18 11:28 - Scribe Statement The provider has reviewed the documentation as recorded by the Maliaibe Maranda Barr. All medical record entries made by the Maliaibgabriel were at my direction and p ersonally dictated by me. I have reviewed the chart and agree that the record accurately reflects my personal performance of the history, physical exam, medical decision making, and the department course for this patient. I have also personally directed, reviewed, and agree with the discharge instructions and disposition. Disposition/Present on Arrival - Present on Arrival Any Indicators Present on Arrival: No History of DVT/PE: No History of Uncontrolled Diabetes: No Urinary Catheter: No History of Decub. Ulcer: No History Surgical Site Infection Following: None - Disposition Have Diagnosis and Disposition been Completed?: Yes Diagnosis: Fibroid uterus, Hematuria, Back spasm Disposition: HOME/ ROUTINE Disposition Time: 14:07 Patient Plan: Discharge Patient Problems: Current Active Problems Problem Status Onset Fibroid uterus Acute Hematuria Acute Back spasm Acute Condition: GOOD Discharge Instructions (ExitCare): Uterine Fibroids, Blood in the Urine (Hematuria) in Adults, Muscle Spasms (DC) Additional Instructions: Follow-up with PMD within 2 days. Follow-up with marketing manager health communications for fibroids. Follow-up with urologist within 1 week for hematuria. Take flexeril for muscle spasm. Return to ED if condition worsens. Prescriptions: Cyclobenzaprine [Flexeril] 5 mg PO TID #20 tab Referrals: Nae Long MD [Primary Care Provider] - Follow up with primary Regina Travis MD [Staff Provider] - Follow up with primary Forms: [employer] (Taiwanese)
[2018-08-08 12:14] LABS: BASO # 0.01 K/mm3 (0.0-2.0); BASO % 0.2 % (0.0-3.0); EOS % 0.8 % (1.5-5.0); HEMOGLOBIN 11.9 g/dL (12.0-16.0); LYMPH # 1.4 (1.2-3.4); LYMPH % 29.7 % (22.0-35.0); MEAN CELL VOLUME 81.7 fl (80.0-105.0); MEAN CORPUSCULAR HEMOGLOBIN 26.2 pg (25.0-35.0); MEAN CORPUSCULAR HGB CONC 32.1 g/dl (31.0-37.0); MEAN PLATELET VOLUME 11.7 fl (7.0-11.0); MONO # 0.2 (0.1-0.6); RBC 4.54 10^6/uL (3.5-6.1); RED CELL DISTRIBUTION WIDTH 13.4 % (11.5-14.5); WHITE BLOOD COUNT 4.8 10^3/uL (4.5-11.0)
[2018-08-08 12:17] LABS: URINE APPEARANCE CLEAR (CLEAR); URINE BILIRUBIN NEGATIVE (NEGATIVE); URINE BLOOD TRACE-INTACT (NEGATIVE); URINE COLOR YELLOW (YELLOW); URINE GLUCOSE (UA) NEGATIVE (NEGATIVE); URINE LEUKOCYTE ESTERASE NEGATIVE Leu/uL (NEGATIVE); URINE PROTEIN NEGATIVE mg/dL (<30 mg/dL); URINE UROBILINOGEN 0.2 E.U./dL (<1 E.U./dL)
[2018-08-08 12:21] LABS: URINE WBC 0 - 2 /hpf (0-6)
[2018-08-08 12:22] LABS: ALB/GLOB RATIO 0.8 (1.1-1.8); ALBUMIN 3.5 g/dL (3.0-4.8); ALT/SGPT 12 U/L (7-56); AST/SGOT 20 U/L (14-36); BLOOD UREA NITROGEN 10 mg/dL (7-21); CALCIUM 8.5 mg/dL (8.4-10.5); GFR NON-AFRICAN AMERICAN > 60; URINE BACTERIA MANY /hpf
[2018-08-08 12:40] VITALS: RESP 18; TEMP 98.2; O2SAT 99
[2018-08-08 14:13] VITALS: BP 98/54; PULSE 76
--- NOTE | 2018-08-08 14:24 | CT ---
Date of service: 08/08/2018 PROCEDURE: CT Abdomen and Pelvis without intravenous contrast HISTORY: L flank tenderness COMPARISON: 11/09/2015 TECHNIQUE: Without contrast.. Contrast dose: Radiation dose: Total exam DLP = 990.28 mGy-cm. This CT exam was performed using one or more of the following dose reduction techniques: Automated exposure control, adjustment of the mA and/or kV according to patient size, and/or use of iterative reconstruction technique. FINDINGS: LOWER THORAX: Unremarkable. LIVER: Unremarkable. No gross lesion or ductal dilatation. GALLBLADDER AND BILE DUCTS: Unremarkable. PANCREAS: Unremarkable. No gross lesion or ductal dilatation. SPLEEN: Unremarkable. ADRENALS: Unremarkable. No mass. KIDNEYS AND URETERS: Unremarkable. No hydronephrosis. No solid mass. There are pelvic phleboliths. There are no distal ureteral stones or evidence of hydronephrosis VASCULATURE: Unremarkable. No aortic aneurysm. No aortic atherosclerotic calcification or mural plaque present. BOWEL: Unremarkable. No obstruction. No gross mural thickening. APPENDIX: Unremarkable. Normal appendix. PERITONEUM: Unremarkable. No free fluid. No free air. LYMPH NODES: Unremarkable. No enlarged lymph nodes. BLADDER: Unremarkable. REPRODUCTIVE: Enlarged fibroid uterus measuring 16 cm wide by 10 cm AP by 18 cm length. BONES: No acute fracture. OTHER FINDINGS: None. IMPRESSION: No acute intra-abdominal or intrapelvic abnormality. Large fibroid uterus
[2018-08-08] MEDS ORDERED: Oxycodone/Acetaminophen 5/325 mg Tab PO STA (14:31)
== END 2018-08-08 14:52 | disposition home or self-care (01) ==
LOC: ED 11:01
DX: D25.9 Leiomyoma of uterus, unspecified (principal); R31.9 Hematuria, unspecified; M62.830 Muscle spasm of back
CPT/HCPCS: 74176; 80053; 81001; 85025; 96374; 99283; J1885; J7030